=== PATIENT | female | born 1955 | race Caucasian/White ===

== ENCOUNTER → 2016-11-08 | Outpatient (CLI) | payer BC ==
[~2016-11-08] MED LIST: ASPIRIN81 M1 PO; DAYPRO600 M1 PO; LEVOTHYROXIN0.125 M1 PO; MELOXICAM15 MG PO
== END ==
LOC: MAMMO 08:58
DX: Z12.31 Encounter for screening mammogram for malignant neoplasm of breast (principal)

== ENCOUNTER → 2017-11-20 | Outpatient (CLI) | payer BC | END | disposition home or self-care (01) | LOC: MAMMO 08:15 | DX: Z12.31 Encounter for screening mammogram for malignant neoplasm of breast (principal); E03.9 Hypothyroidism, unspecified ==

== ENCOUNTER → 2018-07-03 | Outpatient (CLI) | payer BC ==
--- NOTE | ~2018-07-03 | EKG ---
[place], [place] ELECTROCARDIOGRAM REPORT NAME: SHWETA GASPAR UNIT #: [id number] ROOM: DOCTOR: EPIPHANY DRAFT REPORT BIRTHDATE: [birth year] [facility] Test Date: 2018-07-03 Test Time: 11:18:15 Pat Name: SHWETA GASPAR Department: Room: Gender: F Entry Level Business Analyst: Milagros Samuel : 1955 Requested By: BARRETT KHALIL Order Number: [id number] Reading MD: Diaz Thornton MD Measurements Intervals [place] Rate: 79 P: 36 IA: 141 QRS: 58 QRSD: 85 T: 16 QT: 383 QTc: 440 Interpretive Statements Sinus rhythm Electronically Signed On 07-03-2018 17:29:25 PST by Diaz Thornton MD CM:EKGRPT:ELECTROCARDIOGRAM REPORT [id number] BARRETT HART DRAFT REPORT BARRETT KHALIL
== END | disposition home or self-care (01) ==
LOC: CARD 10:57
DX: Z01.810 Encounter for preprocedural cardiovascular examination (principal)

== ENCOUNTER → 2019-02-19 | Outpatient (CLI) | payer BC | END | disposition home or self-care (01) | LOC: MAMMO 08:05 | DX: Z12.31 Encounter for screening mammogram for malignant neoplasm of breast (principal) ==